=== PATIENT | female | born 1995 | race Caucasian/White ===

== ENCOUNTER 2020-05-10 21:25 | Emergency (ER) | payer OTHER ==
[2020-05-10] MEDS ORDERED: NORMAL SALINE 1000 ML 1,000 ML IV ONE (22:24)
--- NOTE | 2020-05-10 22:24 | ER Document Report ---
ED Medical Screen (RME) - General Mode of Arrival: Ambulatory Information source: Patient <ALAYNA NEUMANN - Last Filed: 05/10/20 22:22> <NAYLA HEDRICK P - Last Filed: 05/11/20 01:56> - General Chief Complaint: Shortness Of Breath Stated Complaint: BODY ACHE, CHILL, FLASHES Time Seen by Provider: 05/10/20 22:22 Notes: 25-year-old female presented to ED for complaint of body aches hot and cold flashes short of breath with nausea no vomiting. She states she was tested for Covid 3 weeks ago and it was negative. She has not been tested since then. She states her last menstrual period was about a month ago with due anytime. She states she is and is not on control. We will get blood urine influenza strep Covid and chest x-ray. I will order IV fluids. I have greeted and performed a rapid initial assessment of this patient. A comprehensive ED assessment and evaluation of the patient, analysis of test results and completion of medical decision making process will be conducted by an additional ED providers. (ALAYNA NEUMANN) - Related Data Allergies/Adverse Reactions: No Known Allergies Allergy (Verified 05/10/20 22:19) Physical Exam - Vital signs Vitals: Temp Pulse Resp BP Pulse Ox 99.1 F 118 H 20 118/61 98 05/10/20 21:29 05/10/20 21:29 05/10/20 21:29 05/10/20 21:29 05/10/20 21:29 Course - Laboratory Results Result Diagrams: 05/10/20 22:46 05/10/20 22:46 <NAYLA HEDRICK P - Last Filed: 05/11/20 01:56> - Vital Signs Vital signs: Temp Pulse Resp BP Pulse Ox 100.3 F 100 17 134/50 H 100 05/11/20 01:24 05/11/20 01:24 05/11/20 01:24 05/11/20 00:36 05/11/20 01:24 - Laboratory Results Laboratory Results Interpreted: 05/10/20 05/10/20 22:46 22:46 Hgb 11.9 L Hct 35.0 L MCV 79 L MCH 26.7 L Lymph % (Auto) 5.5 L Absolute Lymphs (auto) 0.4 L Seg Neutrophils % 85.8 H Urine Urobilinogen 2.0 H
[2020-05-10 23:03] LABS: ABSOLUTE EOSINOPHILS # (AUTO) 0.1 10^3/uL (0.0-0.6); ABSOLUTE LYMPHOCYTES (AUTO) 0.4 10^3/uL (0.5-4.7); ABSOLUTE MONOCYTES (AUTO) 0.5 10^3/uL (0.1-1.4); ABSOLUTE NEUT (AUTO) 5.9 10^3/uL (1.7-8.2); BASOPHILS % (AUTO) 0.2 % (0-2); HEMOGLOBIN 11.9 g/dL (12.0-15.5); LYMPHOCYTES % (AUTO) 5.5 % (13-45); MEAN CORPUSCULAR HEMOGLOBIN 26.7 pg (27.0-33.4); MEAN CORPUSCULAR HGB CONC 33.9 g/dL (32.0-36.0); MEAN CORPUSCULAR VOLUME 79 fl (80-97); MONOCYTES % (AUTO) 7.5 % (3-13); PLATELET COUNT 271 10^3/uL (150-450); RED BLOOD COUNT 4.45 10^6/uL (3.72-5.28); RED CELL DISTRIBUTION WIDTH 13.9 % (11.5-14.0); SEGMENTED NEUTROPHILS % (AUTO) 85.8 % (42-78); TOTAL CELLS COUNTED % (AUTO) 100 %; WHITE BLOOD COUNT 6.8 10^3/uL (4.0-10.5)
[2020-05-10 23:19] LABS: APPEARANCE,URINE CLEAR; BILIRUBIN,URINE NEGATIVE (NEGATIVE); COLOR,URINE YELLOW; GLUCOSE, URINE NEGATIVE (NEGATIVE); KETONES,URINE NEGATIVE (NEGATIVE); LEUKOCYTE ESTERASE,URINE NEGATIVE (NEGATIVE); NITRITE,URINE NEGATIVE (NEGATIVE); PROTEIN,URINE NEGATIVE (NEGATIVE); URINE SPECIFIC GRAVITY 1.019
[2020-05-10 23:21] LABS: ALBUMIN 4.1 g/dL (3.5-5.0); ALKALINE PHOSPHATASE 76 U/L (38-126); ANION GAP 10 (5-19); ASPARTATE AMINO TRANSFERASE 24 U/L (14-36); BILIRUBIN,DIRECT 0.1 mg/dL (0.0-0.4); BILIRUBIN,TOTAL 0.4 mg/dL (0.2-1.3); BLOOD UREA NITROGEN 12 mg/dL (7-20); CALCIUM 9.1 mg/dL (8.4-10.2); CARBON DIOXIDE 23 mmol/L (22-30); CHLORIDE 105 mmol/L (98-107); GLUCOSE 104 mg/dL (75-110); TOTAL PROTEIN 7.4 g/dL (6.3-8.2)
--- NOTE | 2020-05-10 23:28 | RADIOLOGY REPORT (SQ) ---
EXAM DESCRIPTION: CHEST SINGLE VIEW CLINICAL HISTORY: 25 years Female, Short of breath COMPARISON: None. FINDINGS: Lungs: Lungs are clear. No pneumonia or edema. No pneumothorax or pleural effusion. Mediastinum: Cardiac and mediastinal silhouette are normal. Bones: Osseous structures are normal. IMPRESSION: Unremarkable single view of the chest.
[2020-05-10 23:29] LABS: A TYPE INFLUENZA AG NEGATIVE (NEGATIVE); B INFLUENZA AG NEGATIVE (NEGATIVE)
[2020-05-11] MEDS ORDERED: ONDANSETRON HCL INJ/PF 4 MG/2 ML SDV IV ONE (00:18)
[2020-05-11] MEDS ORDERED: KETOROLAC TROMETHAMINE INJ/PF 30 MG/1 ML SDV IV ONE (00:19)
[2020-05-11] MEDS ORDERED: LORAZEPAM 0.5 MG TABLET PO ONE ×2 (00:19→00:35)
[2020-05-11] MEDS ORDERED: ACETAMINOPHEN 325 MG TABLET PO ONE (00:42)
[2020-05-11 00:43] LABS: PHOSPHORUS 2.7 mg/dL (2.5-4.5)
[2020-05-11] MEDS ORDERED: DEXAMETHASONE SOD PHOS INJ 10 MG/1 ML VIAL IV ONE (00:54)
--- NOTE | 2020-05-11 00:58 | ER Document Report ---
ED General - General Chief Complaint: Shortness Of Breath Stated Complaint: BODY ACHE, CHILL, FLASHES Time Seen by Provider: 05/10/20 22:22 Mode of Arrival: Ambulatory Notes: 25-year-old female with mild intermittent asthma presents with 2 days of shortness of breath, dry cough, diffuse whole body pain/myalgia, subjective fever, nausea, generalized malaise, lightheadedness when she goes from sitting to standing. Patient had what she says was Klebsiella pneumonia approximately 3 weeks ago and took antibiotics and improved and was asymptomatic in the interim. Patient says she had an episode of vomiting in the emergency department. Patient denies chest pain, smoking history, abdominal or pelvic pain, diarrhea/ constipation/melena/bright red blood per rectum, immunocompromise history, drug use, urinary symptoms, back pain, vaginal symptoms, headache, neck pain or stiffness, sick contacts, recent travel, rash, DVT/PE/hypercoagulability history in self or family, exogenous estrogen use, recent trauma/surgery/immobilization, hemoptysis, cancer history - Related Data Allergies/Adverse Reactions: No Known Allergies Allergy (Verified 05/10/20 22:19) Past Medical History - General Information source: Patient - Social History Smoking Status: Never Smoker Family History: Reviewed & Not Pertinent Patient has homicidal ideation: No Pulmonary Medical History: Reports: Hx Asthma Review of Systems - Review of Systems Notes: REVIEW OF SYSTEMS: CONSTITUTIONAL : + fever, chills, or sweats. EENT: + recent cold symptoms, denies throat pain CARDIOVASCULAR: Denies chest pain, STEVE RESPIRATORY: + cough, +denies shortness of breath. GASTROINTESTINAL: Denies abdominal pain, +nausea/vomiting. GENITOURINARY: Denies difficulty urinating, painful urination. FEMALE GENITOURINARY: Denies abnormal vaginal bleeding, vaginal discharge. MUSCULOSKELETAL: Denies neck pain, back pain. SKIN: Denies rash or skin lesions. HEMATOLOGIC : Denies easy bruising or bleeding. LYMPHATIC: Denies swollen, enlarged glands. NEUROLOGICAL: Denies headache, denies change in gait. PSYCHIATRIC: Denies anxiety or stress or depression. Physical Exam - Vital signs Vitals: Temp Pulse Resp BP Pulse Ox 99.1 F 118 H 20 118/61 98 05/10/20 21:29 05/10/20 21:29 05/10/20 21:29 05/10/20 21:29 05/10/20 21:29 - Notes Notes: PHYSICAL EXAMINATION: GENERAL: Young adult female rolling around in bed tearful with nontoxic appearance in no acute distress. HEAD: Atraumatic, normocephalic. EYES: Pupils equal round and appropriate constriction, sclera anicteric, conjunctiva are normal. ENT: nares patent, moist mucous membranes, normal oropharynx NECK: Normal range of motion, supple without lymphadenopathy LUNGS: Breath sounds clear to auscultation bilaterally and equal. No wheezes rales or rhonchi. Normal respiratory rate and effort HEART: Borderline tachycardia without murmurs ABDOMEN: Soft, nontender, no guarding, no masses, no CVAT EXTREMITIES: Normal range of motion, no pitting or edema. No cyanosis. NEUROLOGICAL: Awake, alert, conversing appropriately, moves all extremities spontaneously. SKIN: Warm, Dry, normal turgor, no rashes or lesions noted. Course - Re-evaluation Re-evalutation: 05/11/20 00:59 Patient with constellation of symptoms for the past 2 days likely viral etiology, rule out PE given tachycardia, rule out electrolyte abnormalities, pneumonia. No risk factors, signs, symptoms, or exam findings consistent with meningitis, endocarditis, bacteremia, osteomyelitis, occult abscess. mildly tachycardic and patient reports orthostatic symptoms, will give fluid bolus, medications for symptomatic control and anxiolysis to facilitate reevaluation, obtain D-dimer which is sufficient to rule out PE in this low risk patient with low Wells score, and reassess. Likely DC with close PCP follow-up, return precautions, and symptomatic therapy. 05/11/20 02:44 Patient feels significantly improved after interventions, resting comfortably, no complaints at this time, exam remains normal, no emergent findings on work- up. Patient otherwise young healthy and no risk factors for complicated course, likely COVID-19 versus other viral syndrome without any indications for admission at this time. Spoke to patient regarding return to ED precautions and PCP follow-up which she was in agreement with and denied having any other questions or concerns at time of discharge. The patient was evaluated during the global COVID-19 pandemic and that diagnosis was suspected/considered upon their initial presentation. Their evaluation, treatment and testing was consistent with current guidelines for patients who present with complaints or symptoms that may be related to COVID-19. - Vital Signs Vital signs: Temp Pulse Resp BP Pulse Ox 99.1 F 95 16 111/54 L 94 05/11/20 03:20 05/11/20 03:20 05/11/20 03:20 05/11/20 03:20 05/11/20 03:20 - Laboratory Results Result Diagrams: 05/10/20 22:46 05/10/20 22:46 Laboratory Results Interpreted: 05/10/20 12 22:46 22:46 Hgb 11.9 L Hct 35.0 L MCV 79 L MCH 26.7 L Lymph % (Auto) 5.5 L Absolute Lymphs (auto) 0.4 L Seg Neutrophils % 85.8 H Urine Urobilinogen 2.0 H Critical Laboratory Results Reviewed: No Critical Results - Radiology Results Critical Radiology Results Reviewed: No Critical Results Discharge - Discharge Clinical Impression: Cough, Dehydration Fever Qualifiers: Fever type: unspecified Qualified Code(s): R50.9 - Fever, unspecified Disposition: HOME, SELF-CARE Additional Instructions: Patient was provided with discharge information including: As a person under investigation for Covid 19, the [place] department of Health and Human Services, division of public health advises you to adhere to the following guidance until your test results are reported to you. If your test result is positive, you will receive additional information from your provider and your local health department at that time. Remain at home until you are cleared by the health provider or public health authorities. Keep a log of visitors to your home, notify any visitors to your home of your isolation status. If you plan to move to a new address or leave the [facility], notify the local health department in your [facility]. Call your doctor or seek care if you have an urgent medical need. Before seekin g medical care, call ahead to get instructions from the provider before arriving at the medical office clinic or hospital. Notify them that you are being tested for the virus that causes Covid 19 so that arrangements can be made, as necessary, to prevent transmission to others in the healthcare setting. Next, notify the local health department in your county. If a medical emergency arises and you need to call 911, inform the first responders that you are being tested for the virus that causes Covid 19. Next, notify the local health department in your county. Make sure you increase the amount of fluids that you are taking in every day. Follow-up with your primary doctor in 3 days. If you have any worsening symptoms, new symptoms, difficulty breathing, fainting, leg swelling, rashes, confusion, neck pain or stiffness, severe headache, or any other worsening or alarming symptoms return to the emergency department immediately. Prescriptions: Ibuprofen [Ibu] 600 mg PO Q6HP PRN #15 tablet PRN Reason: For Pain Benzonatate [Tessalon Perles 100 mg Capsule] 100 mg PO Q8HP PRN #15 capsule PRN Reason: Cough
[2020-05-11] MEDS ORDERED: NORMAL SALINE 1000 ML 1,000 ML IV ONE (01:39)
[2020-05-11 03:23] VITALS: BP 111/54
== END 2020-05-11 03:23 | disposition home or self-care (01) ==
LOC: ER 21:25
DX: U07.1 COVID-19 (principal); J45.909 Unspecified asthma, uncomplicated; E86.0 Dehydration; R50.9 Fever, unspecified; R05 Cough; M79.10 Myalgia, unspecified site; R11.2 Nausea with vomiting, unspecified; R53.81 Other malaise; R42 Dizziness and giddiness; Z87.01 Personal history of pneumonia (recurrent)
CPT/HCPCS: 99284; 96361; 96374; 96375; 36415; 87070; 87880; 82550; 84702; 83735; 84100; 85025; 87635; 80053; 81001; 85379; 87804; 71045; J1885; J2405; J7030; J1100; C9803